=== PATIENT | female | born 1955 | race Caucasian/White ===

== ENCOUNTER → 2017-03-03 16:43 | Outpatient (CLI) | payer OTHER ==
[2016-03-26 23:28] VITALS: BMI 25.8
[~2017-03-03 16:43] MED LIST: ASPIRIN EC81 M1 PO; BACTROBAN NASAL1 GM NASAL; CALCIUM 600 +1 EAC3 PO; CYCLOBENZAPRINE10 MG PO; ELIQUIS2.5 MG PO; FISH OIL 1,2001 CAP PO; HYDROCODON-ACE1 EAC7 PO; HYDROCODONE-APA1 TAB PO; IRON PO; NAPROSYN500 MG PO; NIASPAN500 MG PO; OXYCODONE HCL5 MG PO; PRAVACHOL20 MG PO; PRAVASTATIN SOD10 MG PO; PROBIOTIC1 EAC1 PO; VITAMIN D31000 UNIT PO
== END | disposition home or self-care (01) ==
LOC: D.MAMMO 10:15
DX: Z12.31 Encounter for screening mammogram for malignant neoplasm of breast (principal)

== ENCOUNTER → 2018-03-05 18:19 | Outpatient (CLI) | payer OTHER ==
[2016-03-26 23:28] VITALS: BMI 25.8
== END | disposition home or self-care (01) ==
LOC: D.MAMMO 10:15
DX: Z12.31 Encounter for screening mammogram for malignant neoplasm of breast (principal)

== ENCOUNTER → 2019-03-08 08:00 | Outpatient (CLI) | payer OTHER ==
[2016-03-26 23:28] VITALS: BMI 25.8
== END | disposition home or self-care (01) ==
LOC: D.MAMMO 08:00
PROVIDERS: ATTEND Internal Medicine
DX: Z12.31 Encounter for screening mammogram for malignant neoplasm of breast (principal)

== ENCOUNTER → 2020-01-17 08:18 | Outpatient (CLI) | payer OTHER ==
[2016-03-26 23:28] VITALS: BMI 25.8
--- NOTE | ~2020-01-17 | HEMODYNAMI ---
PATIENT:TETE ARRIAGA MEDICAL RECORD: [id number] : 57 LOCATION:[facility] ADMISSION DATE: 01/17/20 Generatedon:01/17/20209:08 Patient name: TETE ARRIAGA Patient #: [id number] SSN: : 1955 Date of study: 01/17/2020 Page: Of Hemodynamic Procedure Report Patient Data Patient Demographics Procedure consent was obtained First Name: TETE Gender: Female Last Name: CORINA : 1955 [facility] Initial: BRISA Age: 64 year(s) Patient #: [id number] Race: Unknown Additional ID: [id number] Contact details Address: [facility] [employer] State: [place] City: [place] Zip code: [address] Past Medical History Allergies Allergen Reaction Date Comments Reported Iodine 01/17/2020 Admission Admission Data Admission Date: 01/17/2020 Admission Time: 8:18 Procedure Procedure Types Cath Procedure Peripheral Cath Diagnostic Procedure Chain Mender Peripheral Procedures Miscellaneous Aspiration/Injection (Joint) Procedure Description Procedure Date Procedure Date: 01/17/2020 Procedure Start Time: 8:49 Procedure Staff Name Function Arnaud Turner MD Performing Physician Katherin Leigh RT Assistant City Attorney Procedure Data Cath Procedure Fluoroscopy Diagnostic fluoroscopy Total fluoroscopy Time: 0.4 time: 0.4 min min Diagnostic fluoroscopy Total fluoroscopy dose: 3 dose: 3 mGy mGy Hemodynamics Rest Pre Cath Intra NCS Post Cath Procedure Log Time Note 8:37:13 Time tracking: Regular hours (M-F 7:00 - 5:00) 8:38:04 Patient received from Other to IR Alert and oriented. Tansferred to table in Supine position. 8:38:07 Correct patient and procedure confirmed by team. 8:38:11 Signed procedure consent form obtained from patient. 8:38:14 Pre-procedure instructions explained to patient. 8:38:14 Pre-procedure instructions explained to patient. 8:38:16 Pre-op teaching completed and patient verbalized understanding. 8:38:23 Patient allergic to Iodine 8:38:30 Is the patient allergic to Iodine/contrast media? Yes. not using contrast 8:38:33 Was the patient premedicated? No 8:38:38 Is patient on blood thinner?Yes, stop taking 5 days ago 8:39:21 8:39:30 SAFE-T PLUS MYELOGRAM TRAY opened to sterile field. 8:48:18 Physician arrived 8:48:19 --------ALL STOP TIME OUT------ 8:48:20 Final Timeout: patient, procedure, and site verified with staff and physician. All members of the team are in agreement. 8:49:03 Procedure started. 8:49:03 Full Disclosure recording started 8:49:13 Local anesthetic to Left Hip with Lidocaine 1% by Arnaud Turner MD.INITIAL ACCESS ONLY 9:02:51 Procedure ended.(Physican Out) 9:02:55 Fluoroscopy time 00.40 minutes. 9:03:02 Fluoroscopy dose: 3 mGy 9:03:02 Flurop Dose total: 3 9:03:28 BANDAIDE APPLIED AND SITE STABLE PT SENT HOME Device Usage Item Name Manufacture Quantity Catalog Hospital Part Current Minimal Lot# / Number Charge Number Stock Stock Serial# Code SAFE-T [employer] 1 [id number] PLUS MYELOGRAM TRAY Signature Audit [place] Stage Time Signature Unsigned Intra-Procedure 01/17/2020 Katherin Leigh 9:08:10 AM (R) [facility] [address] [place] [address]
== END | disposition home or self-care (01) ==
LOC: D.RAD 08:18
PROVIDERS: ATTEND Orthopaedic Surgery
DX: M16.11 Unilateral primary osteoarthritis, right hip (principal); M16.12 Unilateral primary osteoarthritis, left hip

== ENCOUNTER 2020-03-13 08:00 | Outpatient (CLI) | payer OTHER ==
[2016-03-26 23:28] VITALS: BMI 25.8
== END 2020-03-13 09:56 | disposition home or self-care (01) ==
LOC: D.MAMMO 08:00
PROVIDERS: ATTEND Internal Medicine
DX: Z12.31 Encounter for screening mammogram for malignant neoplasm of breast (principal)

== ENCOUNTER → 2020-11-02 17:32 | Outpatient (CLI) | payer OTHER ==
[2020-07-26 12:31] VITALS: BMI 29.1
[~2020-11-02 17:32] MED LIST changes: +KEFLEX500 MG PO; +OXYCODONE HCL10 MG PO; +TAPAZOLE 5 MG TA5 MG PO; +VISTARIL50 MG PO; +VITAMIN D-32000 UNI2 PO
[2020-11-02 19:13] LABS: BASOPHILS 0.5 % (0-2); EOSINOPHILS 3.2 % (0-7); HEMATOCRIT 43.4 % (36.0-48.0); HEMOGLOBIN 14.4 g/dL (12-16); IMMATURE GRANULOCYTES 0.2 % (0-5); LYMPHOCYTE ABS# 1.98 10x3/uL (1.18-3.74); LYMPHOCYTES 33.7 % (15-50); MCH 30.4 pg (26.0-34.0); MCHC 33.2 g/dL (31.0-37.0); MCV 91.8 fL (80.0-100.0); MEAN PLATELET VOLUME 11.4 fL (7.4-10.4); NEUTROPHIL ABS# 3.19 10x3/uL (1.56-6.13); NEUTROPHILS 54.4 % (40-80); PLATELET COUNT 411 10x3/uL (130-400); RBC 4.73 10x6/uL (4.00-5.40); WBC 5.9 10x3/uL (4.8-10.8)
[2020-11-02 20:19] LABS: ERYTHROCYTE SEDIMENTATION RATE 6 mm/hr (0-30)
[2020-11-04 14:09] LABS: ANA REFLEX - DIRECT Negative (Negative)
== END | disposition home or self-care (01) ==
LOC: D.LABREF 17:32
PROVIDERS: ATTEND Clinical Nurse Specialist Family Health
DX: M25.552 Pain in left hip (principal)

== ENCOUNTER → 2020-11-16 17:42 | Outpatient (CLI) | payer OTHER ==
[2020-07-26 12:31] VITALS: BMI 29.1
== END | disposition home or self-care (01) ==
LOC: D.LABREF 17:42
PROVIDERS: ATTEND Orthopaedic Surgery
DX: M19.011 Primary osteoarthritis, right shoulder (principal)

== ENCOUNTER 2020-12-06 08:00 | Outpatient (CLI) | payer OTHER ==
[2020-12-06] MEDS ORDERED: BAYER CHEWABLE81 MG PO (10:59)
[2020-12-13 18:14] VITALS: BMI 26.7
== END 2020-12-06 08:01 | disposition home or self-care (01) ==
LOC: D.PAN 08:00
PROVIDERS: ATTEND Orthopaedic Surgery
DX: M19.011 Primary osteoarthritis, right shoulder (principal); E78.5 Hyperlipidemia, unspecified

== ENCOUNTER 2020-12-13 07:30 | Observation (INO) | payer OTHER ==
[2020-12-06 11:39] LABS: BASOPHILS 0.7 % (0-2); BILIRUBIN NEGATIVE (NEGATIVE); EOSINOPHILS 3.1 % (0-7); HEMATOCRIT 43.3 % (36.0-48.0); HEMOGLOBIN 14.4 g/dL (12-16); IMMATURE GRANULOCYTES 0.3 % (0-5); KETONE NEGATIVE (NEGATIVE); LYMPHOCYTE ABS# 1.78 10x3/uL (1.18-3.74); LYMPHOCYTES 30.7 % (15-50); MCH 29.9 pg (26.0-34.0); MCHC 33.3 g/dL (31.0-37.0); MCV 89.8 fL (80.0-100.0); MEAN PLATELET VOLUME 10.6 fL (7.4-10.4); MONOCYTES 7.2 % (2-11); NEUTROPHIL ABS# 3.36 10x3/uL (1.56-6.13); NITRITE NEGATIVE (NEGATIVE); PLATELET COUNT 436 10x3/uL (130-400); RBC 4.82 10x6/uL (4.00-5.40); RDW 13.8 % (11.5-14.5); UROBILINOGEN NORMAL mg/dL (< 2); WBC 5.8 10x3/uL (4.8-10.8)
[2020-12-06 11:43] LABS: CALC OSMOLALITY 282 mosm/kg (275-300); CALCIUM 9.3 mg/dL (8.5-10.1); CARBON DIOXIDE 27.2 mmol/L (21.0-32.0); CHLORIDE - SERUM 105 mmol/L (98-107); CREATININE - SERUM 0.7 mg/dL (0.6-1.3); GLUCOSE 114 mg/dL (74-106); POTASSIUM - SERUM 3.8 mmol/L (3.5-5.1); SODIUM 141 mmol/L (136-145); UREA NITROGEN 16 mg/dL (7-18); eGFR NON AFRICAN AMERICAN 89 mL/min (90-120)
[2020-12-06 11:47] LABS: APTT 31.1 SECONDS (22.8-39.4); INR 1.05 (0.85-1.17); PROTIME 12.7 SECONDS (11.6-15.0)
[~2020-12-13] VITALS: Ht 167.6 cm; Wt 75.0 kg
[~2020-12-13 07:30] MED LIST changes: +BAYER CHEWABLE81 MG PO
[2020-12-13 08:11] VITALS: BP 118/88; BMI 26.7
--- NOTE | 2020-12-13 13:29 | NUR ---
THROUGH TRAFFIC KEPT TO A MINIMUM. HIBACLENS AND ALCOHOL USED TO CLEAN BEFORE PREPPING. STERILE GOWNED AND GLOVED TO PREP WITH CHLORAPREP
[2020-12-13 15:24] VITALS: BP 110/52
--- NOTE | 2020-12-13 16:37 | OP ---
PATIENT NAME: TETE ARRIAGA MEDICAL RECORD: [id number] :57 LOCATION:D. D.1204 ADMISSION DATE:12/13/20 SURGEON: TY MONREAL DO DATE OF OPERATION: 12/13/2020 PROCEDURE PERFORMED: Right total shoulder arthroplasty with rotator cuff repair. PREOPERATIVE DIAGNOSES: Right shoulder osteoarthritis with partial thickness rotator cuff tear. POSTOPERATIVE DIAGNOSES: Right shoulder osteoarthritis with partial thickness rotator cuff tear. INDICATIONS: Ms. Arriaga is a 65-year-old female who has had right shoulder pain for quite some time. She has tried injections and physical therapy to no avail. She was tired of dealing with the pain in the right shoulder. MRI was done showing the above findings. She did have an inferior osteophyte of the humeral head. She was tired of dealing with it and wanted something done surgical. I informed her of the risks and benefits of this including infection, bleeding, damage to nerve or vessels, continued pain, loss of motion of the shoulder, need for further surgery, failure of implants and even and she signed the consent. SURGEON: Ty Monreal DO DESCRIPTION OF PROCEDURE: The patient received a block by anesthesia in the preoperative area. She was taken to the operative suite, laid in supine position, given general anesthetic and intubated. She was given 900 mg of clindamycin, a gram of TXA and put in the beach chair position. The right shoulder was then prepped and draped in sterile fashion. A timeout was performed. Everyone was in agreeance with the correct side, site, patient and procedure. I then began by marking out the deltopectoral interval on the skin and made careful dissection down to the deltopectoral interval, taking the cephalic vein laterally and releasing the proximal centimeter of the pec. I tagged the long head of the biceps tendon to that and cut it. I then followed the long head biceps tendon up into the shoulder, opening up the rotator interval. I then tagged the subscapularis tendon with #2 Ethibonds and peeled it off of the lesser tuberosity. I then exposed the humeral head and marked the cut with a guide at 30 degrees of retroversion. I then cut the humeral head and removed it and then exposed the glenoid and removed the labrum and the long head of the biceps tendon that was left, and then used a sizer for #2 and centered it using a centering pin. I then reamed and drilled holes for the glenoid component, made a trial, the trial fit very well. I then irrigated and put cement in the holes and on the back of the glenoid component and impacted in place, removed the excess cement. I then exposed the humerus, reamed and broached. A 12 stem fit very well and trialed with a 42 x 24 head and had good 50% shucking and bounced back on the glenoid. I then removed the trials, drilled holes in the lesser tuberosity, put #2 Ethibond through them in anticipation of the subscap repair. I then irrigated thoroughly and put in the 12 stem and impacted on the head. We then reduced the shoulder and repaired the subscapularis tendon using [place] type stitch to the lesser tuberosity. I then closed the rotator interval in a zlsgbu-ke-mrsde fashion. I then put a Regeneten implant on the supraspinatus at the partial tear site and pinned it in place with olivia. I then irrigated with 10% povidone-iodine and 500 mL of OPERATIVE REPORT [id number] TETE ARRIAGA normal saline solution. Christopher Boston, board certified orthodontist irrigated out with over a liter of normal saline and put in Renato and vancomycin and tobramycin powder. I then closed the skin with 2-0 Vicryl in inverted interrupted fashion, 4-0 Monocryl ran on the skin and put a Prineo glue on the skin. She was then dressed with Telfa, Tegaderm and put in a sling, awakened and taken to recovery in stable condition. BLOOD LOSS: Approximately, 200 mL. COMPLICATIONS: None. TRANSINT:[id number] Voice Confirmation ID: [id number] DOCUMENT ID: [id number] TY MONREAL DO at 1630 CC: [id number] DICTATION DATE: 12/13/20 1422 RECORDS MANAGER: 12/13/20 1634 ADM IN [facility] [address] [place] [address]
[2020-12-13 18:14] VITALS: BP 110/52; Ht 167.6 cm; Wt 75.0 kg
--- NOTE | 2020-12-13 19:12 | MORECARE ---
CASE MANAGEMENT DISCHARGE SUMMARY PATIENT: TETE ARRIAGA UNIT: [id number] ADM DATE: 12/13/20 AGE: 65 : 57 SEX: F [facility] AUTHOR: HOANG,DOC PHYSICIAN: REFERRING PHYSICIAN: BENNIE MONREAL DO DATE OF SERVICE: 12/13/20 Case Management Discharge Planning Summary DCP REVIEW SUMMARY ANTICIPATED D/C DATE: EXPECTED LOS : CASE STATUS: DCP Initiated INITIAL REVIEW: 12/13/2020 INITIAL REVIEWER: Steffi Pabon FINAL DISCHARGE DISPOSITION: : FINAL REVIEWER: FINAL REVIEW DATE: DCP Focus Questions & Answers QUESTION: ANSWER : PATIENT: TETE ARRIAGA ENCOUNTER: [id number] MEDICAL RECORD#: [id number] ADMISSION DATE: 12/13/2020 DISCHARGE DATE: ATTENDING MD: BENNIE BLACKMON : AGE: 65 MARITAL STATUS: M DC PLAN ID: [id number] FACILITY: [facility] PRINTED ON: 12/13/20 19:12 CT All edits/amendments must be made on the electronic document DICTATION DATE: 12/13/201911 SPECIFICATION WRITER: AYUSH 12/13/201911 RPT#: [id number] DC DATE: STATUS: ADM IN [facility] [address] [facility] [place] [address] END OF REPORT
--- NOTE | 2020-12-13 19:23 | MORECARE ---
CASE MANAGEMENT DISCHARGE SUMMARY PATIENT: TETE ARRIAGA UNIT: [id number] ADM DATE: 12/13/20 AGE: 65 : 57 SEX: F ROOM/BED: D.1204 AUTHOR: HOANG,DOC PHYSICIAN: REFERRING PHYSICIAN: BENNIE MONREAL DO DATE OF SERVICE: 12/13/20 Case Management Discharge Planning Summary COMMENTS ENTERED DATE: 12/13/20 19:11 CT COMMENT TYPE: Discharge Planning REVIEWER: Steffi Pabon PCP: FEDERICO STANLEY Pharmacy: [facility] [address] CM met with patient at bedside. Patient states that she lives at home with . Patient states that she has 0 steps going into her home. Patient states that she has a chair that lifts her arm. Patient will follow up with Dr. Monreal before any therapy Patient states that feels safe to discharge to her home with her and she will transportation home. CM will continue to follow and assist as needed with discharge planning / needs DCP REVIEW SUMMARY ANTICIPATED D/C DATE: EXPECTED LOS : CASE STATUS: DCP Initiated INITIAL REVIEW: 12/13/2020 INITIAL REVIEWER: Steffi Pabon FINAL DISCHARGE DISPOSITION: : FINAL REVIEWER: FINAL REVIEW DATE: DCP Focus Questions & Answers QUESTION: ANSWER : PATIENT: TETE ARRIAGA ENCOUNTER: [id number] MEDICAL RECORD#: [id number] ADMISSION DATE: 12/13/2020 DISCHARGE DATE: ATTENDING MD: BENNIE BLACKMON : AGE: 65 MARITAL STATUS: M DC PLAN ID: [id number] FACILITY: [facility] PRINTED ON: 12/13/20 19:23 CT All edits/amendments must be made on the electronic document DICTATION DATE: 12/13/201922 [place] MAT INSPECTOR: AYUSH 12/13/201922 RPT#: [id number] DC DATE: STATUS: ADM IN [facility] [address] [place] [address] END OF REPORT
--- NOTE | 2020-12-13 20:00 | NUR ---
ALERT SITTING UP IN BED, RIGHT ARM IN SLING FINGERS WARM AND ABLE TO MOVE DENIES PAIN AT THIS TIME, SEE SHIFT ASSESSMENT, CALL LIGHT IN REACH
[2020-12-13 20:09] VITALS: BP 106/68
[2020-12-13 20:12] VITALS: BP 119/59
[2020-12-14] VITALS: BP 107/58
[2020-12-14 04:06] VITALS: BP 99/63
[2020-12-14 07:06] VITALS: BP 116/55
[2020-12-14 07:17] LABS: BASOPHILS 0.4 % (0-2); EOSINOPHILS 0.2 % (0-7); HEMOGLOBIN 12.2 g/dL (12-16); MCH 29.7 pg (26.0-34.0); MEAN PLATELET VOLUME 8.5 fL (7.4-10.4); MONOCYTES 7.5 % (2-11); NEUTROPHILS 80.9 % (40-80); PLATELET COUNT 377 10x3/uL (130-400); RBC 4.11 10x6/uL (4.00-5.40); RDW 14.3 % (11.5-14.5); WBC 13.1 10x3/uL (4.8-10.8)
[2020-12-14 07:42] LABS: ALBUMIN 3.3 g/dL (3.4-5.0); ALKALINE PHOSPHATASE 75 U/L (30-120); ALT (SGPT) 23 U/L (10-68); BILIRUBIN - TOTAL 0.33 mg/dL (0.2-1.3); CALC OSMOLALITY 279 mosm/kg (275-300); CALCIUM 8.7 mg/dL (8.5-10.1); CARBON DIOXIDE 23.9 mmol/L (21.0-32.0); CHLORIDE - SERUM 105 mmol/L (98-107); CREATININE - SERUM 0.8 mg/dL (0.6-1.3); GLUCOSE 122 mg/dL (74-106); POTASSIUM - SERUM 4.3 mmol/L (3.5-5.1); PROTEIN - SERUM 6.1 g/dL (6.4-8.2); SODIUM 139 mmol/L (136-145); UREA NITROGEN 15 mg/dL (7-18); eGFR NON AFRICAN AMERICAN 76 mL/min (90-120)
--- NOTE | 2020-12-14 07:42 | NUR ---
PT REQUESTED AND RECIEVED SOME PURPLE WIPES. VOICES UNDERSTANDING ABOUT NOT FLUSHING WIPES. STATES HER COUGH HAS WENT AWAY SINCE USING THE INCENTIVE SPIROMETER. STATES SHE STILL HAS A SORE THROAT FROM THE "TUBE DOWN HER THROAT." CL IN REACH. RANDALL IN ROOM. WCTM
[2020-12-14] MEDS ORDERED: PERCOCET 10-321 EAC1 PO (08:08)
--- NOTE | 2020-12-14 10:41 | NUR ---
IV THERAPY DC'ED FROM LEFT HAND WITH TIP INTACT. DISCHARGE PAPERS GIVEN. SCRIPT FOR PERCOCETS GIVEN. RANDALL AND PT VOICED UNDERSTANDING.
--- NOTE | 2020-12-14 10:46 | MORECARE ---
CASE MANAGEMENT DISCHARGE SUMMARY PATIENT: TETE ARRIAGA UNIT: [id number] ADM DATE: 12/13/20 AGE: 65 : 57 SEX: F ROOM/BED: D.1204 AUTHOR: HOANG,DOC PHYSICIAN: REFERRING PHYSICIAN: BENNIE MONREAL DO DATE OF SERVICE: 12/14/20 Case Management Discharge Planning Summary COMMENTS ENTERED DATE: 12/13/20 19:11 CT COMMENT TYPE: Discharge Planning REVIEWER: Steffi Pabon PCP: FEDERICO STANLEY Pharmacy: [facility] [address] CM met with patient at bedside. Patient states that she lives at home with . Patient states that she has 0 steps going into her home. Patient states that she has a chair that lifts her arm. Patient will follow up with Dr. Monreal before any therapy Patient states that feels safe to discharge to her home with her and she will transportation home. CM will continue to follow and assist as needed with discharge planning / needs DCP REVIEW SUMMARY ANTICIPATED D/C DATE: EXPECTED LOS : CASE STATUS: DCP Initiated INITIAL REVIEW: 12/13/2020 INITIAL REVIEWER: Steffi Pabon FINAL DISCHARGE DISPOSITION: : FINAL REVIEWER: FINAL REVIEW DATE: DCP Focus Questions & Answers QUESTION: ANSWER : PATIENT: TETE ARRIAGA ENCOUNTER: [id number] MEDICAL RECORD#: [id number] ADMISSION DATE: 12/13/2020 DISCHARGE DATE: 12/14/2020 ATTENDING MD: BENNIE BLACKMON : AGE: 65 MARITAL STATUS: M DC PLAN ID: [id number] FACILITY: [facility] PRINTED ON: 12/14/20 10:46 CT All edits/amendments must be made on the electronic document DICTATION DATE: 12/14/20 1046 FRUIT TRIMMER: DM 12/14/20 1046 RPT#: [id number] DC DATE:12/14/20 STATUS: DIS IN [facility] [address] [place] [address] END OF REPORT
== END 2020-12-14 10:44 | disposition home or self-care (01) ==
LOC: D.OPS 07:30 → EDSTATUS 09:15 → D.OPS 09:30 → OBSVTIME 10:06 → D.M3 10:06 → D.OPS 10:15 → D.M3 12-14 10:44
PROVIDERS: Family Medicine Adult Medicine; ADMIT Orthopaedic Surgery; ATTEND Orthopaedic Surgery
DX: M19.011 Primary osteoarthritis, right shoulder (principal); E78.5 Hyperlipidemia, unspecified